=== PATIENT | female | born 1965 | race Caucasian/White ===

== ENCOUNTER 2016-08-10 01:29 | Inpatient (IN) | payer OTHER ==
[~2016-08-10] VITALS: Ht 162.6 cm; Wt 103.8 kg
[2016-08-10 03:19] LABS: EOSINOPHIL (%) 2.9 % (0-5); EOSINOPHIL COUNT 0.3 K/uL (0-0.3); IMMATURE GRANULOCYTE (%) 0.3 % (0.0-0.7); LYMPHOCYTE COUNT 3.1 K/uL (1.0-2.8); MCH 26.2 PG (29.0-34.0); MCHC 31.2 G/DL (30.0-36.0); MCV 84.2 FL (83-99); MONOCYTE (%) 6.1 % (3-12); MONOCYTE COUNT 0.7 K/uL (0-0.8); NEUTROPHIL (%) 61.7 % (45-76); NEUTROPHIL COUNT 6.7 K/uL (1.8-6.4); RBC DIS.WIDTH-SD 46.5 % (39-53); RED BLOOD COUNT 2.02 M/uL (3.80-5.20); WHITE BLOOD COUNT 10.8 K/uL (4.1-10.2)
[2016-08-10 03:23] LABS: CHLORIDE 106 mEq/L (99-109); POTASSIUM 4.2 mEq/L (3.7-5.4); SODIUM 144 mEq/L (136-147)
[2016-08-10 03:25] LABS: GLUCOSE 139 mg/dL (70-99)
[2016-08-10 03:26] LABS: ANION GAP 13 MEQ/L (2-14)
[2016-08-10 03:28] LABS: GFR ESTIMATE (CALCULATED) > 59 mL/min/
[2016-08-10 03:29] LABS: UREA NITROGEN (BUN) 10 mg/dL (9-23)
[2016-08-10 03:34] LABS: HEMATOLOGY COMMENT 1 SMEAR COMPATIBLE; PLAT.SUFFICIENCY INCREASED; USER ID DCS
[2016-08-10 03:36] LABS: PLATELET CLUMPS PRESENT - PLATELET C
[2016-08-10 03:44] LABS: BASOPHIL COUNT 0.1 K/uL (0-0.1); EOSINOPHIL (%) 2.4 % (0-5); EOSINOPHIL COUNT 0.2 K/uL (0-0.3); HEMATOCRIT 35.9 % (36.0-46.0); IMMATURE GRANULOCYTE (%) 0.1 % (0.0-0.7); IMMATURE GRANULOCYTE COUNT 0.1 K/uL; LYMPHOCYTE COUNT 2.4 K/uL (1.0-2.8); MCH 25.8 PG (29.0-34.0); MCHC 31.5 G/DL (30.0-36.0); MEAN PLAT.VOLUME 9.4 uM^3 (9.5-12.4); MONOCYTE (%) 7.1 % (3-12); MONOCYTE COUNT 0.6 K/uL (0-0.8); NEUTROPHIL (%) 58.4 % (45-76); NEUTROPHIL COUNT 4.5 K/uL (1.8-6.4); PLATELET COUNT 452 K/uL (156-360); RBC DIS.WIDTH-CV 14.8 % (11.8-14.6); RBC DIS.WIDTH-SD 43.1 % (39-53); RED BLOOD COUNT 4.38 M/uL (3.80-5.20); WHITE BLOOD COUNT 7.8 K/uL (4.1-10.2)
[2016-08-10 06:06] VITALS: BP 138/85
[2016-08-10 06:07] VITALS: BP 138/85
[2016-08-10 12:00] VITALS: BP 149/79
[2016-08-10 16:00] VITALS: BP 149/79
[2016-08-10 19:26] VITALS: BP 118/68
[2016-08-10 23:28] VITALS: BP 119/65
[2016-08-11 03:28] VITALS: BP 137/76
[2016-08-11 06:48] LABS: EOSINOPHIL (%) 3.1 % (0-5); EOSINOPHIL COUNT 0.2 K/uL (0-0.3); HEMATOCRIT 31.7 % (36.0-46.0); IMMATURE GRANULOCYTE (%) 0.2 % (0.0-0.7); LYMPHOCYTE COUNT 1.8 K/uL (1.0-2.8); MCH 26.6 PG (29.0-34.0); MCHC 31.5 G/DL (30.0-36.0); MCV 84.3 FL (83-99); MEAN PLAT.VOLUME 9.8 uM^3 (9.5-12.4); MONOCYTE (%) 8.6 % (3-12); MONOCYTE COUNT 0.5 K/uL (0-0.8); NEUTROPHIL (%) 55.3 % (45-76); PLATELET COUNT 348 K/uL (156-360); RBC DIS.WIDTH-CV 15.2 % (11.8-14.6); RBC DIS.WIDTH-SD 47.1 % (39-53); RED BLOOD COUNT 3.76 M/uL (3.80-5.20); WHITE BLOOD COUNT 5.5 K/uL (4.1-10.2)
[2016-08-11 07:05] LABS: ANION GAP 7 MEQ/L (2-14); CHLORIDE 107 MEQ/L (99-109); GFR ESTIMATE (CALCULATED) > 59 mL/min/; GLUCOSE 115 mg/dL (70-99); POTASSIUM 4.3 MEQ/L (3.7-5.4); SAMPLE HEMOLYSIS CHECK 0; SAMPLE ICTERIC CHECK 0; SAMPLE LIPEMIA CHECK 0; SODIUM 140 MEQ/L (136-147); UREA NITROGEN (BUN) 9 mg/dL (9-23)
[2016-08-11 07:37] LABS: Estimated Average Glucose 134 mg/dL (70-123); HEMOGLOBIN A1c (GLYCOHEMOGLOB) 6.3 % HGB (Below 5.7)
[2016-08-11 07:45] VITALS: BP 109/69
[2016-08-11] MEDS ORDERED: ASPIR-LOW81 MG PO (15:15)
[2016-08-11] MEDS ORDERED: BACTRIM,SEPT1 TABLET PO (15:16)
[2016-08-11] MEDS ORDERED: AMOXICILLIN500 MG PO (15:16)
[2016-08-11] MEDS ORDERED: BLOOD LANCETS1 EACH MC (15:18)
[2016-08-11] MEDS ORDERED: GLUCOMETER MC (15:18)
[2016-08-11] MEDS ORDERED: TEST STRIPS MC (15:19)
== END 2016-08-11 15:34 | disposition home or self-care (01) | DRG 603 ==
LOC: EME 01:29 → EDOF 05:04 → 2EASTP 05:57
PROVIDERS: Emergency Medicine; Family Medicine; Hospitalist; Internal Medicine
DX: L03.115 Cellulitis of right lower limb (principal); I10 Essential (primary) hypertension; J45.902 Unspecified asthma with status asthmaticus; J45.909 Unspecified asthma, uncomplicated; F17.200 Nicotine dependence, unspecified, uncomplicated; R73.9 Hyperglycemia, unspecified; D64.9 Anemia, unspecified; E78.5 Hyperlipidemia, unspecified
CPT/HCPCS: 73590; 80048; 80202; 82948; 83036; 85025; 85025 91; 87040; 87070; 87075; 87077; 87147; 87186; 87205; 93925; 99202; 99281; 99285; J0295; J1644; J1815; J3370; J7050

== ENCOUNTER 2016-10-25 10:47 | Emergency (ER) | payer OTHER ==
[~2016-10-25] VITALS: Ht 162.6 cm; Wt 96.3 kg
[~2016-10-25 10:47] MED LIST: AMOXICILLIN500 MG PO; ASPIR-LOW81 MG PO; BACTRIM,SEPT1 TABLET PO; BLOOD LANCETS1 EACH MC; GLUCOMETER MC; TEST STRIPS MC
[2016-10-25] MEDS ORDERED: ATARAX,VISTARIL50 MG PO (11:58)
[2016-10-25] MEDS ORDERED: KETOCONAZOLE60 GM TP (11:58)
[2016-10-25 12:02] VITALS: BP 136/78
== END 2016-10-25 12:08 | disposition home or self-care (01) ==
LOC: EXP 10:47 → EME 10:47 → EXP 12:08
DX: L30.9 Dermatitis, unspecified (principal); I10 Essential (primary) hypertension; J45.909 Unspecified asthma, uncomplicated; F17.200 Nicotine dependence, unspecified, uncomplicated
CPT/HCPCS: 99281; 99283; Q0177

== ENCOUNTER 2017-03-23 14:43 | Inpatient (IN) | payer OTHER ==
[~2017-03-23] VITALS: Ht 162.6 cm; Wt 83.6 kg
[~2017-03-23 14:43] MED LIST changes: +ATARAX,VISTARIL50 MG PO; +KETOCONAZOLE60 GM TP
[2017-03-23 15:39] LABS: HEMATOCRIT 37.5 % (36.0-46.0); MCH 25.6 PG (29.0-34.0); MCHC 30.9 G/DL (30.0-36.0); MCV 82.6 FL (83-99); MEAN PLAT.VOLUME 9.9 uM^3 (9.5-12.4); PLATELET COUNT 287 K/uL (156-360); RBC DIS.WIDTH-CV 14.5 % (11.8-14.6); RBC DIS.WIDTH-SD 43.5 % (39-53); RED BLOOD COUNT 4.54 M/uL (3.80-5.20); WHITE BLOOD COUNT 4.7 K/uL (4.1-10.2)
[2017-03-23 15:51] LABS: CHLORIDE 108 mEq/L (99-109); SODIUM 144 mEq/L (136-147)
[2017-03-23 15:52] LABS: GLUCOSE 105 mg/dL (70-99)
[2017-03-23 15:54] LABS: ANION GAP 11 MEQ/L (2-14)
[2017-03-23 15:56] LABS: GFR ESTIMATE (CALCULATED) > 59 mL/min/; SERUM ETHYL ALCOHOL < 10 mg/dL
[2017-03-23 15:58] LABS: UREA NITROGEN (BUN) 10 mg/dL (9-23)
[2017-03-23 16:00] LABS: SALICYLATE < 5.0 MG/DL (15-30)
[2017-03-23 16:32] LABS: ADD MIUA? NO; BILIRUBIN NEGATIVE; BLOOD NEGATIVE; COLOR STRAW ((YELLOW)); GLUCOSE (STRIP) NEGATIVE; KETONES NEGATIVE; LEUKOCYTES NEGATIVE; NITRITE NEGATIVE; PROTEIN (STRIP) NEGATIVE; SPECIFIC GRAVITY 1.008 (1.000-1.030); UCUL ADDED? NO; UROBILINOGEN 0.2 MG/DL (0.2-1.0)
[2017-03-23 16:43] LABS: AMPHETAMINE NEGATIVE (500 ng/mL); BARBITURATES NEGATIVE (200 ng/mL); BENZODIAZEPINES NEGATIVE (150 ng/mL); COCAINE NEGATIVE (150 ng/mL); INTERNAL CONTROLS VALID? YES; METHADONE NEGATIVE (200 ng/mL); METHAMPHETAMINE NEGATIVE (500 ng/mL); OPIATES (MORPHINE) NEGATIVE (100 ng/mL); OXYCODONE NEGATIVE (100 ng/mL); PHENCYCLIDINE NEGATIVE (25 ng/mL); PROPOXYPHENE NEGATIVE (300 ng/mL); THC CANNABINOIDS NEGATIVE (50 ng/mL); TRICYCLIC ANTIDEPRESSANTS NEGATIVE (300 ng/mL)
[2017-03-23 19:33] VITALS: BP 137/81
[2017-03-24 08:03] VITALS: BP 129/68
[2017-03-24 16:16] VITALS: BP 118/77
[2017-03-25 07:50] VITALS: BP 130/86
[2017-03-25 15:46] VITALS: BP 115/56
[2017-03-26 07:59] VITALS: BP 148/71
[2017-03-26] MEDS ORDERED: CIPROFLOXACIN500 M1 PO (09:37)
== END 2017-03-26 12:30 | disposition home or self-care (01) | DRG 882 ==
LOC: EME 14:43 → EDOF 18:40 → 1WEST 18:40 → ENRESERV 19:24 → 1WEST 19:26
DX: F43.23 Adjustment disorder with mixed anxiety and depressed mood (principal); R45.851 Suicidal ideations; L97.829 Non-pressure chronic ulcer of other part of left lower leg with unspecified severity; I10 Essential (primary) hypertension; Z91.120 Patient's intentional underdosing of medication regimen due to financial hardship; F17.210 Nicotine dependence, cigarettes, uncomplicated; J45.909 Unspecified asthma, uncomplicated; T45.0X2A Poisoning by antiallergic and antiemetic drugs, intentional self-harm, initial encounter; T37.8X6A Underdosing of other specified systemic anti-infectives and antiparasitics, initial encounter
CPT/HCPCS: 80048; 81003; 85027; 90839; 93005; 99281; 99285; A6260; G0480

== ENCOUNTER 2017-07-29 23:42 | Emergency (ER) | payer OTHER ==
[~2017-07-29] VITALS: Ht 162.6 cm; Wt 72.5 kg
[~2017-07-29 23:42] MED LIST changes: +CIPROFLOXACIN500 M1 PO
[2017-07-30 01:48] LABS: APPEARANCE CLEAR ((CLEAR)); BILIRUBIN NEGATIVE; BLOOD NEGATIVE; COLOR YELLOW ((YELLOW)); GLUCOSE (STRIP) NEGATIVE; KETONES NEGATIVE; LEUKOCYTES NEGATIVE; NITRITE NEGATIVE; PROTEIN (STRIP) NEGATIVE; SPECIFIC GRAVITY 1.028 (1.000-1.030); UCUL ADDED? NO; UROBILINOGEN 0.2 MG/DL (0.2-1.0)
[2017-07-30 01:56] LABS: BASOPHIL (%) 0.5 % (0-1); EOSINOPHIL (%) 1.5 % (0-5); EOSINOPHIL COUNT 0.1 K/uL (0-0.3); HEMATOCRIT 36.7 % (36.0-46.0); HEMOGLOBIN 11.8 G/DL (11.9-15.5); IMMATURE GRANULOCYTE (%) 0.2 % (0.0-0.7); LYMPHOCYTE (%) 26.2 % (15-42); LYMPHOCYTE COUNT 1.6 K/uL (1.0-2.8); MCH 26.5 PG (29.0-34.0); MCHC 32.2 G/DL (30.0-36.0); MCV 82.3 FL (83-99); MONOCYTE (%) 9.3 % (3-12); MONOCYTE COUNT 0.6 K/uL (0-0.8); NEUTROPHIL (%) 62.3 % (45-76); NEUTROPHIL COUNT 3.8 K/uL (1.8-6.4); PLATELET COUNT 233 K/uL (156-360); RBC DIS.WIDTH-CV 15.9 % (11.8-14.6); RBC DIS.WIDTH-SD 47.7 % (39-53); RED BLOOD COUNT 4.46 M/uL (3.80-5.20); WHITE BLOOD COUNT 6.1 K/uL (4.1-10.2)
[2017-07-30 02:20] LABS: TROP-I INTERPRETATION NEGATIVE; TROPONIN-I < 0.01 ng/mL (0.0-0.30)
[2017-07-30 02:27] LABS: AMPHETAMINE NEGATIVE (500 ng/mL); BENZODIAZEPINES NEGATIVE (150 ng/mL); COCAINE NEGATIVE (150 ng/mL); METHAMPHETAMINE NEGATIVE (500 ng/mL); OPIATES (MORPHINE) NEGATIVE (100 ng/mL); PHENCYCLIDINE NEGATIVE (25 ng/mL); THC CANNABINOIDS NEGATIVE (50 ng/mL); TRICYCLIC ANTIDEPRESSANTS NEGATIVE (300 ng/mL)
[2017-07-30 02:28] LABS: BARBITURATES NEGATIVE (200 ng/mL); BUPRENORPHINE NEGATIVE (10 ng/mL); METHADONE NEGATIVE (200 ng/mL); OXYCODONE NEGATIVE (100 ng/mL); PROPOXYPHENE NEGATIVE (300 ng/mL)
[2017-07-30 02:29] LABS: ALBUMIN 3.9 g/dL (3.2-4.8); CHLORIDE 108 mEq/L (99-109); POTASSIUM 4.1 mEq/L (3.7-5.4); SODIUM 141 mEq/L (136-147)
[2017-07-30 02:30] LABS: MAGNESIUM 1.9 mg/dL (1.3-2.7)
[2017-07-30 02:31] LABS: GLUCOSE 111 mg/dL (70-99)
[2017-07-30 02:32] LABS: TOTAL PROTEIN 6.3 g/dL (6.4-8.3)
[2017-07-30 02:33] LABS: TOTAL BILIRUBIN 0.2 mg/dL (0.0-1.0)
[2017-07-30 02:34] LABS: SERUM ETHYL ALCOHOL < 10 mg/dL
[2017-07-30 02:35] LABS: CREATININE 0.8 mg/dL (0.6-1.3); GFR ESTIMATE (CALCULATED) > 59 mL/min/
[2017-07-30 02:36] LABS: ALKALINE PHOSPHATASE 112 IU/L (3-129)
[2017-07-30 02:37] LABS: AST (GOT) 11 IU/L (2-34); UREA NITROGEN (BUN) 21 mg/dL (9-23)
[2017-07-30 02:38] LABS: SALICYLATE < 5.0 MG/DL (15-30)
[2017-07-30 02:39] LABS: ACETAMINOPHEN (TYLENOL) < 10 mcg/mL (10-30); ALT (GPT) 12 IU/L (3-49)
[2017-07-30 04:29] VITALS: BP 116/67
== END 2017-07-30 04:36 | disposition home or self-care (01) ==
LOC: EME 23:42
PROVIDERS: Emergency Medicine
DX: F43.23 Adjustment disorder with mixed anxiety and depressed mood (principal); R00.1 Bradycardia, unspecified; I10 Essential (primary) hypertension; J45.909 Unspecified asthma, uncomplicated; F17.200 Nicotine dependence, unspecified, uncomplicated
CPT/HCPCS: 71045; 80053; 81003; 83735; 84484; 85025; 90839; 93005; G0480

== ENCOUNTER 2017-09-27 20:13 | Emergency (ER) | payer OTHER ==
[~2017-09-27] VITALS: Ht 162.6 cm; Wt 69.4 kg
[2017-09-27 20:51] LABS: HEMATOCRIT 38.7 % (36.0-46.0); HEMOGLOBIN 12.5 G/DL (11.9-15.5); MCH 27.2 PG (29.0-34.0); MCHC 32.3 G/DL (30.0-36.0); MCV 84.3 FL (83-99); PLATELET COUNT 269 K/uL (156-360); RBC DIS.WIDTH-CV 14.6 % (11.8-14.6); RBC DIS.WIDTH-SD 44.9 % (39-53); RED BLOOD COUNT 4.59 M/uL (3.80-5.20); WHITE BLOOD COUNT 5.2 K/uL (4.1-10.2)
[2017-09-27 21:00] LABS: CHLORIDE 105 mEq/L (99-109); POTASSIUM 3.9 mEq/L (3.7-5.4); SODIUM 140 mEq/L (136-147)
[2017-09-27 21:02] LABS: GLUCOSE 104 mg/dL (70-99)
[2017-09-27 21:05] LABS: SERUM ETHYL ALCOHOL < 10 mg/dL
[2017-09-27 21:06] LABS: CREATININE 0.7 mg/dL (0.6-1.3); GFR ESTIMATE (CALCULATED) > 59 mL/min/
[2017-09-27 21:08] LABS: UREA NITROGEN (BUN) 14 mg/dL (9-23)
[2017-09-27 21:09] LABS: ACETAMINOPHEN (TYLENOL) < 10 mcg/mL (10-30); SALICYLATE < 5.0 MG/DL (15-30)
[2017-09-27 22:22] LABS: AMPHETAMINE NEGATIVE (500 ng/mL); BARBITURATES NEGATIVE (200 ng/mL); BENZODIAZEPINES NEGATIVE (150 ng/mL); BUPRENORPHINE NEGATIVE (10 ng/mL); COCAINE NEGATIVE (150 ng/mL); METHADONE NEGATIVE (200 ng/mL); METHAMPHETAMINE NEGATIVE (500 ng/mL); OPIATES (MORPHINE) NEGATIVE (100 ng/mL); OXYCODONE NEGATIVE (100 ng/mL); PHENCYCLIDINE NEGATIVE (25 ng/mL); PROPOXYPHENE NEGATIVE (300 ng/mL); THC CANNABINOIDS NEGATIVE (50 ng/mL); TRICYCLIC ANTIDEPRESSANTS NEGATIVE (300 ng/mL)
[2017-09-28 01:41] VITALS: BP 140/90
== END 2017-09-28 01:42 | disposition home or self-care (01) ==
LOC: EME 20:13
PROVIDERS: Emergency Medicine
DX: F32.9 Major depressive disorder, single episode, unspecified (principal); R45.851 Suicidal ideations; I10 Essential (primary) hypertension; J45.909 Unspecified asthma, uncomplicated; F17.200 Nicotine dependence, unspecified, uncomplicated
CPT/HCPCS: 80048; 85027; 90839; 99281; 99284; G0480

== ENCOUNTER 2017-10-02 14:26 | Emergency (ER) | payer OTHER ==
[~2017-10-02] VITALS: Ht 162.6 cm; Wt 69.9 kg
[2017-10-02 17:11] VITALS: BP 123/78
== END 2017-10-02 17:14 | disposition home or self-care (01) ==
LOC: EME 14:26
DX: S06.5X0A Traumatic subdural hemorrhage without loss of consciousness, initial encounter (principal); W10.9XXA Fall (on) (from) unspecified stairs and steps, initial encounter; I10 Essential (primary) hypertension; F32.9 Major depressive disorder, single episode, unspecified; J45.909 Unspecified asthma, uncomplicated; F17.200 Nicotine dependence, unspecified, uncomplicated
CPT/HCPCS: 70450; 70486; 72125

== ENCOUNTER 2017-10-14 12:04 | Emergency (ER) | payer OTHER ==
[~2017-10-14] VITALS: Ht 162.6 cm; Wt 70.0 kg
[2017-10-14 16:35] VITALS: BP 119/70
== END 2017-10-14 16:39 | disposition home or self-care (01) ==
LOC: EME 12:04
DX: M79.602 Pain in left arm (principal); Z91.81 History of falling; J45.909 Unspecified asthma, uncomplicated; I10 Essential (primary) hypertension; E11.9 Type 2 diabetes mellitus without complications; F32.9 Major depressive disorder, single episode, unspecified; Z87.891 Personal history of nicotine dependence
CPT/HCPCS: 71046; 73060; 73080; 73090; 99281; 99284

== ENCOUNTER 2017-10-16 08:03 | Inpatient (IN) | payer OTHER ==
[~2017-10-16] VITALS: Ht 162.6 cm; Wt 68.5 kg
[2017-10-16 10:14] LABS: AMPHETAMINE NEGATIVE (500 ng/mL); BARBITURATES NEGATIVE (200 ng/mL); BENZODIAZEPINES NEGATIVE (150 ng/mL); BUPRENORPHINE NEGATIVE (10 ng/mL); COCAINE NEGATIVE (150 ng/mL); METHADONE NEGATIVE (200 ng/mL); METHAMPHETAMINE NEGATIVE (500 ng/mL); OPIATES (MORPHINE) NEGATIVE (100 ng/mL); OXYCODONE NEGATIVE (100 ng/mL); PHENCYCLIDINE NEGATIVE (25 ng/mL); PROPOXYPHENE NEGATIVE (300 ng/mL); THC CANNABINOIDS NEGATIVE (50 ng/mL); TRICYCLIC ANTIDEPRESSANTS NEGATIVE (300 ng/mL)
[2017-10-16 10:19] LABS: HEMATOCRIT 33.3 % (36.0-46.0); HEMOGLOBIN 10.7 G/DL (11.9-15.5); MCH 27.3 PG (29.0-34.0); MCHC 32.1 G/DL (30.0-36.0); MCV 84.9 FL (83-99); PLATELET COUNT 274 K/uL (156-360); RBC DIS.WIDTH-CV 14.1 % (11.8-14.6); RBC DIS.WIDTH-SD 43.8 % (39-53); RED BLOOD COUNT 3.92 M/uL (3.80-5.20); WHITE BLOOD COUNT 5.9 K/uL (4.1-10.2)
[2017-10-16 10:28] LABS: CHLORIDE 107 mEq/L (99-109); SODIUM 143 mEq/L (136-147)
[2017-10-16 10:30] LABS: GLUCOSE 174 mg/dL (70-99)
[2017-10-16 10:33] LABS: SERUM ETHYL ALCOHOL < 10 mg/dL
[2017-10-16 10:34] LABS: CREATININE 0.7 mg/dL (0.6-1.3); GFR ESTIMATE (CALCULATED) > 59 mL/min/
[2017-10-16 10:35] LABS: UREA NITROGEN (BUN) 13 mg/dL (9-23)
[2017-10-16 10:42] LABS: QUANTITATIVE HCG < 4.0 MIU/ML
[2017-10-16 13:14] VITALS: BP 114/58
[2017-10-16 13:27] LABS: APPEARANCE CLEAR ((CLEAR)); BILIRUBIN NEGATIVE; BLOOD NEGATIVE; COLOR YELLOW ((YELLOW)); GLUCOSE (STRIP) NEGATIVE; KETONES 5; LEUKOCYTES NEGATIVE; NITRITE NEGATIVE; PROTEIN (STRIP) 30; SPECIFIC GRAVITY 1.028 (1.000-1.030)
[2017-10-16 15:41] VITALS: BP 119/67
[2017-10-16] MEDS ORDERED: ZOLOFT25 MG PO (17:11)
[2017-10-17 09:30] VITALS: BP 130/68
[2017-10-17 15:26] VITALS: BP 113/56
[2017-10-18 09:34] LABS: HEMOGLOBIN A1c (GLYCOHEMOGLOB) 5.6 % (Below 5.7)
[2017-10-18 15:20] VITALS: BP 122/61
[2017-10-19 07:37] VITALS: BP 123/58
[2017-10-19] MEDS ORDERED: ESCITALOPRAM OX10 MG PO (10:08)
== END 2017-10-19 11:40 | disposition home or self-care (01) | DRG 881 ==
LOC: EME 08:03 → EDOF 10:43 → 1WEST 10:43 → ENRESERV 12:23 → 1WEST 13:08
PROVIDERS: Emergency Medicine; Psychiatry & Neurology Psychiatry
DX: F43.21 Adjustment disorder with depressed mood (principal); E11.9 Type 2 diabetes mellitus without complications; R45.851 Suicidal ideations; I10 Essential (primary) hypertension; J45.909 Unspecified asthma, uncomplicated
CPT/HCPCS: 80048; 81003; 83036; 84702; 85027; 87086; 90839; 97150 GO; 97165 GO; 99281; 99285; G0480